=== PATIENT | female | born 1995 | race Caucasian/White ===

== ENCOUNTER 2022-09-18 06:26 | Emergency (ER) | payer MEDICAID, OTHER ==
[~2022-09-18] VITALS: Ht 170.2 cm; Wt 113.4 kg
[~2022-09-18 06:26] MED LIST: PREN-385 PO
[2022-09-18 06:34] VITALS: BP 132/80
--- NOTE | 2022-09-18 06:37 | NUR ---
TO BED AMBULATORY
--- NOTE | 2022-09-18 06:45 | NUR ---
ERMD AT BEDSIDE
[2022-09-18] MEDS ORDERED: FAMOTIDINE 20 MG TAB PO ONE (06:50)
[2022-09-18] MEDS ORDERED: ALUMINUM HYD/MAG/SIMETHICONE 30 ML UDC PO ONE (06:50)
[2022-09-18] MEDS ORDERED: ONDANSETRON 4 MG ODT PO ONE (06:50)
--- NOTE | 2022-09-18 06:59 | NUR ---
URINE COLLECTED AND WALKED TO LAB
--- NOTE | 2022-09-18 06:59 | NUR ---
PATIENT MEDICATED PER ORDERS. TOLERATED WELL. NADR
--- NOTE | 2022-09-18 07:00 | NUR ---
RAD AT BEDSIDE
--- NOTE | 2022-09-18 07:12 | NUR ---
LAB AT BEDSIDE
[2022-09-18 07:16] LABS: APPEARANCE,URINE HAZY (CLEAR); BILIRUBIN,URINE NEGATIVE (NEGATIVE); BLOOD, URINE NEGATIVE (NEGATIVE); COLOR,URINE YELLOW (YELLOW); LEUKOCYTE ESTERASE ,URINE NEGATIVE (NEGATIVE); NITRITE, URINE NEGATIVE (NEGATIVE); UGLUCOSE NEGATIVE (NEGATIVE)
[2022-09-18 07:21] LABS: BASOPHILS % (AUTO) 0.3 % (0.0-2.0); EOSINOPHILS # (AUTO) 0.2 K/uL (0-0.4); EOSINOPHILS % (AUTO) 2.4 % (0.0-4.0); HEMATOCRIT 36.1 % (36-48); HEMOGLOBIN 12.2 g/dL (12.0-16.0); LYMPHOCYTES # (AUTO) 2.6 K/uL (2.5-16.5); MEAN CORPUSCULAR HEMOGLOBIN 27 pg (27-31); MEAN CORPUSCULAR HGB CONC 34 g/dL (33-37); MEAN CORPUSCULAR VOLUME 79.6 fL (80-94); MONOCYTES # (AUTO) 0.5 K/uL (0.8-1.0); MONOCYTES % (AUTO) 6.6 % (1.7-9.3); NEUTROPHILS # (AUTO) 3.7 K/uL (1.8-7.7); NEUTROPHILS % (AUTO) 53.7 % (42.2-75.2); PLATELET COUNT (AUTO) 307 K/uL (140-450); RED BLOOD CELL COUNT(AUTO) 4.53 MIL/uL (4.20-5.40); RED CELL DISTRIBUTION WIDTH 14.6 % (11.6-13.7)
--- NOTE | 2022-09-18 07:23 | NUR ---
REPORT GIVEN TO JOSE MARIA GONZALES. TRANSFER OF CARE.
--- NOTE | 2022-09-18 07:23 | NUR ---
REPORT RECEIVED FROM MARCO A ALFONSO. ASSUMED CARE AT THIS TIME.
--- NOTE | 2022-09-18 07:24 | NUR ---
pt at rest w/ hob raised. respirations even and unlabored. on monitoring manager. pending xray/lab results
[2022-09-18 08:02] LABS: ALBUMIN 3.3 g/dL (3.4-5.0); ANION GAP 12.9 (8-16); ASPARTATE AMINOTRANSFERASE 18 U/L (15-37); CARBON DIOXIDE 27.8 mmol/L (21-32); CHLORIDE 107 mmol/L (98-107); GLUCOSE 118 mg/dL (74-106); POTASSIUM 3.7 mmol/L (3.5-5.1); SODIUM SERUM 144 mmol/L (136-145); TOTAL BILIRUBIN 0.1 mg/dL (0.0-1.0); UREA NITROGEN, BLOOD 15 mg/dL (7-18)
[2022-09-18 08:32] LABS: GFR ARICAN-AMERICAN 85 mL/min (>90)
[2022-09-18] MEDS ORDERED: FAMO-90 PO (08:38)
[2022-09-18] MEDS ORDERED: SUCR1TAB35 PO (08:38)
[2022-09-18 08:47] VITALS: BP 127/75
--- NOTE | 2022-09-18 08:47 | NUR ---
Patient discharged with v/s stable. Written and verbal after care instructions FOR NON SPECIFIC CHEST PAIN AND GERD given and explained. Patient alert, oriented and verbalized understanding of instructions. Ambulatory with steady gait. All questions addressed prior to discharge. ID band removed. Patient advised to follow up with PMD. Rx of PEPCID AND CARAFATE given.Opportunity to ask questions provided and answered.
== END 2022-09-18 08:47 | disposition home or self-care (01) ==
LOC: MED 06:26
DX: R07.89 Other chest pain (principal); R10.13 Epigastric pain; Z79.899 Other long term (current) drug therapy
CPT/HCPCS: 36415; 71045; 80053; 81003; 81025; 84484; 85025; 93005; 99285; Q0092; Q0162